=== PATIENT | female | born 1970 | race Caucasian/White ===

== ENCOUNTER 2021-06-10 10:33 | Emergency (ER) | payer BC ==
[~2021-06-10] VITALS: Ht 170.2 cm; Wt 95.0 kg
[2021-06-10 11:22] LABS: URINE BILIRUBIN - DIPSTICK NEGATIVE (NEGATIVE); URINE BLOOD DIPSTICK NEGATIVE (NEGATIVE); URINE COLOR YELLOW; URINE GLUCOSE - DIPSTICK NEGATIVE (NEGATIVE); URINE KETONE NEGATIVE (NEGATIVE); URINE LEUK ESTERASE NEGATIVE (NEGATIVE); URINE PROTEIN - DIPSTICK NEGATIVE (NEG-TRACE); URINE SPECIFIC GRAVITY <=1.005; URINE UROBILINOGEN - DIPSTICK 0.2 E.U./dL (0.2)
[2021-06-10 11:22] LABS: HEMATOCRIT 39.1 % (37.0-47.0); IMMATURE GRANULOCYTES 0.1 % (0.0-5.0); MEAN CELL VOLUME 93.1 fL CALC (80.0-100.0); MEAN CORPUSCULAR HGB CONC 33.2 g/dL CAL (32.0-36.0); NEUT# 5.75 thou/uL (2.00-7.15); RED BLOOD COUNT 4.2 mill/uL (4.20-5.60); RED CELL DISTRI WIDTH 12.8 % (11.5-15.5)
[2021-06-10 11:23] LABS: URINE NITRITE - DIPSTICK NEGATIVE (Negative)
[2021-06-10 11:31] LABS: ALBUMIN 4.4 g/dL (3.2-5.0); ALKALINE PHOSPHATASE 83 u/l (38-126); ANION GAP 13 (6-22 (CALC)); BILIRUBIN, TOTAL 0.8 mg/dL (0.0-1.4); BUN 14 mg/dL (7-17); BUN/CREATININE RATIO 22 (12-20 (CALC)); CARBON DIOXIDE 26 mmol/l (22-30); CHLORIDE 103 mmol/l (95-108); CREATININE 0.7 mg/dL (0.5-1.0); GFR > 60 ML/MIN (>=60 (CALC)); GFR FOR AFR.AMER. > 60 ML/MIN (>=60 (CALC)); LIPASE 135 u/l (23-300); POTASSIUM 4.3 mmol/l (3.5-5.1); SGOT/AST 24 u/l (14-36); SODIUM 138 mmol/l (137-146); TOTAL PROTEIN 7.3 g/dL (6.3-8.2)
[2021-06-10] MEDS ORDERED: CIPROFLOXACN500 MG PO (11:31)
[2021-06-10] MEDS ORDERED: AMOX/K CLAV875 M1 PO (11:31)
[2021-06-10] MEDS ORDERED: ZOFRAN4 M1 PO (11:31)
[2021-06-10 11:59] VITALS: BP 142/81
== END 2021-06-10 12:07 | disposition home or self-care (01) | DRG 392 ==
LOC: ED 10:33
PROVIDERS: Family Medicine
DX: K57.32 Diverticulitis of large intestine without perforation or abscess without bleeding (principal); E66.9 Obesity, unspecified; Z68.32 Body mass index [BMI] 32.0-32.9, adult

== ENCOUNTER 2022-04-27 08:53 | Emergency (ER) | payer BC ==
[~2022-04-27] VITALS: Ht 170.2 cm; Wt 95.0 kg
[2022-04-27] VITALS (10 sets, daily range): BP systolic 141–183; BP diastolic 65–90
[~2022-04-27 08:53] MED LIST: AMOX/K CLAV875 M1 PO; CIPROFLOXACN500 MG PO; ZOFRAN4 M1 PO
[2022-04-27 09:24] LABS: HEMATOCRIT 43.5 % (37.0-47.0); IMMATURE GRANULOCYTES 0.1 % (0.0-5.0); MEAN CELL VOLUME 90.4 fL CALC (80.0-100.0); MEAN CORPUSCULAR HGB 31.4 pG CALC (26.0-32.0); MEAN CORPUSCULAR HGB CONC 34.7 g/dL CAL (32.0-36.0); NEUT# 9.55 thou/uL (2.00-7.15); RED BLOOD COUNT 4.81 mill/uL (4.20-5.60); RED CELL DISTRI WIDTH 12.6 % (11.5-15.5)
[2022-04-27 09:26] LABS: HEMOGLOBIN 15.1 g/dl (12.0-16.0)
[2022-04-27 09:42] LABS: ALBUMIN 4.9 g/dL (3.2-5.0); ALKALINE PHOSPHATASE 92 u/l (38-126); ANION GAP 17 (6-22 (CALC)); BILIRUBIN, TOTAL 0.6 mg/dL (0.0-1.4); BUN 12 mg/dL (7-17); BUN/CREATININE RATIO 16 (12-20 (CALC)); CARBON DIOXIDE 22 mmol/l (22-30); CHLORIDE 102 mmol/l (95-108); CREATININE 0.7 mg/dL (0.5-1.0); GFR FOR AFR.AMER. > 60 ML/MIN (>=60 (CALC)); GFR OTHER RACES > 60 ML/MIN (>=60 (CALC)); LIPASE 124 u/l (23-300); POTASSIUM 3.9 mmol/l (3.5-5.1); SGOT/AST 40 u/l (14-36); SODIUM 137 mmol/l (137-146); TOTAL PROTEIN 8.2 g/dL (6.3-8.2)
[2022-04-27 10:22] LABS: URINE BILIRUBIN - DIPSTICK NEGATIVE (NEGATIVE); URINE BLOOD DIPSTICK NEGATIVE (NEGATIVE); URINE COLOR YELLOW; URINE GLUCOSE - DIPSTICK NEGATIVE (NEGATIVE); URINE KETONE 15 mg/dL (NEGATIVE); URINE LEUK ESTERASE NEGATIVE (NEGATIVE); URINE NITRITE - DIPSTICK NEGATIVE (Negative); URINE PH 7.5 (4.5-8.0); URINE PROTEIN - DIPSTICK NEGATIVE (NEG-TRACE); URINE SPECIFIC GRAVITY 1.015; URINE UROBILINOGEN - DIPSTICK 0.2 E.U./dL (0.2)
[2022-04-27] MEDS ORDERED: TRAMADOL HYDROC50 M1 PO ×2 (12:20→12:57)
[2022-04-27] MEDS ORDERED: ZOFRAN4 MG/TAB PO (12:20)
== END 2022-04-27 13:14 | disposition home or self-care (01) | DRG 446 ==
LOC: ED 08:53
PROVIDERS: Family Medicine
DX: K80.20 Calculus of gallbladder without cholecystitis without obstruction (principal); E66.9 Obesity, unspecified
CPT/HCPCS: Q9967

== ENCOUNTER 2022-07-25 11:32 | Emergency (ER) | payer BC ==
[2022-07-25] VITALS (8 sets, daily range): BP systolic 104–188; BP diastolic 57–88
[~2022-07-25] VITALS: Ht 170.2 cm; Wt 95.0 kg
[~2022-07-25 11:32] MED LIST changes: +TRAMADOL HYDROC50 M1 PO; +ZOFRAN4 MG/TAB PO
[2022-07-25 12:24] LABS: URINE BILIRUBIN - DIPSTICK NEGATIVE (NEGATIVE); URINE BLOOD DIPSTICK NEGATIVE (NEGATIVE); URINE COLOR YELLOW; URINE GLUCOSE - DIPSTICK NEGATIVE (NEGATIVE); URINE KETONE NEGATIVE (NEGATIVE); URINE LEUK ESTERASE NEGATIVE (NEGATIVE); URINE NITRITE - DIPSTICK NEGATIVE (Negative); URINE PH 5.5 (4.5-8.0); URINE PROTEIN - DIPSTICK NEGATIVE (NEG-TRACE); URINE SPECIFIC GRAVITY <=1.005; URINE UROBILINOGEN - DIPSTICK 0.2 E.U./dL (0.2)
[2022-07-25 12:25] LABS: BASO% 0.7 % (0-3); EOS% 4.9 % (0-8); MEAN CELL VOLUME 95.1 fL CALC (80.0-100.0); MEAN CORPUSCULAR HGB 32.5 pG CALC (26.0-32.0); MEAN CORPUSCULAR HGB CONC 34.1 g/dL CAL (32.0-36.0); MONO% 6.8 % (2-13); NEUT# 4.73 thou/uL (2.00-7.15); NEUT% 66.6 % (42-76); RED BLOOD COUNT 3.91 mill/uL (4.20-5.60); RED CELL DISTRI WIDTH 12.6 % (11.5-15.5)
[2022-07-25 12:32] LABS: HEMATOCRIT 37.2 % (37.0-47.0); HEMOGLOBIN 12.7 g/dl (12.0-16.0)
[2022-07-25 12:33] LABS: ALBUMIN 4.3 g/dL (3.2-5.0); ALKALINE PHOSPHATASE 56 u/l (38-126); ANION GAP 9 (6-22 (CALC)); BILIRUBIN, TOTAL 0.5 mg/dL (0.0-1.4); BUN 15 mg/dL (7-17); BUN/CREATININE RATIO 20 (12-20 (CALC)); CARBON DIOXIDE 29 mmol/l (22-30); CHLORIDE 104 mmol/l (95-108); CREATININE 0.7 mg/dL (0.5-1.0); GFR FOR AFR.AMER. > 60 ML/MIN (>=60 (CALC)); GFR OTHER RACES > 60 ML/MIN (>=60 (CALC)); LIPASE 149 u/l (23-300); SGOT/AST 29 u/l (14-36); SODIUM 138 mmol/l (137-146); TOTAL PROTEIN 7.3 g/dL (6.3-8.2)
[2022-07-25] MEDS ORDERED: ZOFRAN4 MG/TAB PO (14:04)
[2022-07-25] MEDS ORDERED: HYDROCO/APAP1 TA9 PO (14:04)
[2022-07-27] MEDS ORDERED: PERCOCET 5/321 COMBO PO (12:20)
== END 2022-07-25 14:45 | disposition home or self-care (01) | DRG 446 ==
LOC: ED 11:32
PROVIDERS: Family Medicine
DX: K80.20 Calculus of gallbladder without cholecystitis without obstruction (principal)

== ENCOUNTER 2022-08-13 07:22 | Day surgery (SDC) | payer BC ==
[~2022-08-13] VITALS: Ht 170.2 cm; Wt 90.7 kg
[~2022-08-13 07:22] MED LIST changes: +HYDROCO/APAP1 TA9 PO; +PARAGARD IU; +PERCOCET 5/321 COMBO PO
[2022-08-13] MEDS ORDERED: PERCOCET 5/325M1 TAB PO (08:47)
[2022-08-13 10:52] VITALS: BP 146/83
== END 2022-08-13 11:11 | disposition home or self-care (01) | DRG 419 ==
LOC: ORM 07:22
PROVIDERS: ATTEND Surgery
PROC: 0FT44ZZ Resection of Gallbladder, Percutaneous Endoscopic Approach (ICD-10-PCS; principal; 2022-08-13)
DX: K80.10 Calculus of gallbladder with chronic cholecystitis without obstruction (principal)
CPT/HCPCS: J0131

== ENCOUNTER 2024-02-01 14:49 | Emergency (ER) | payer BC ==
[~2024-02-01] VITALS: Ht 170.2 cm; Wt 100.0 kg
[~2024-02-01 14:49] MED LIST changes: +AMOXICILLIN500 M2 PO; +METRONIDAZOLE500 MG PO; +MOTRIN800 MG PO; +PERCOCET 5/325M1 TAB PO
[2024-02-01] MEDS ORDERED: EPINEPHrine HCL 1 MG/ML AMP IM STA (15:12)
[2024-02-01] MEDS ORDERED: SODIUM CHLORIDE 0.9% 1,000 ML IV STA (15:12)
[2024-02-01] MEDS ORDERED: DiphenhydrAMINE HCL 50 MG/ML SDV IV STA (15:12)
[2024-02-01] MEDS ORDERED: methylPREDNISolone SODIUM SUCC 125 MG/2 ML SDV IV STA (15:12)
[2024-02-01] MEDS ORDERED: FAMOTIDINE 10MG/ML 2ML SDV IV STA (15:12)
[2024-02-01 16:04] LABS: ALBUMIN 4.2 g/dL (3.2-5.0); BASO% 0.7 % (0-3); BILIRUBIN, TOTAL 0.8 mg/dL (0.02-1.3); CREATININE 0.8 mg/dL (0.5-1.0); EOS% 5.8 % (0-8); HEMATOCRIT 37.4 % (37.0-47.0); HEMOGLOBIN 12.8 g/dl (12.0-16.0); IMMATURE GRANULOCYTES 0.7 % (0.0-5.0); LYMPH% 23.9 % (15-41); MEAN CELL VOLUME 94.9 fL CALC (80.0-100.0); MEAN CORPUSCULAR HGB 32.5 pG CALC (26.0-32.0); MEAN CORPUSCULAR HGB CONC 34.2 g/dL CAL (32.0-36.0); MONO% 6.6 % (2-13); NEUT# 5.19 thou/uL (2.00-7.15); NEUT% 62.3 % (42-76); RED BLOOD COUNT 3.94 mill/uL (4.20-5.60); RED CELL DISTRI WIDTH 12.6 % (11.5-15.5)
[2024-02-01] MEDS ORDERED: EPIPEN 2-P0.3 MG/0.3 IM (17:31)
[2024-02-01] MEDS ORDERED: PREDNISONE20 MG PO (17:31)
[2024-02-01 17:53] VITALS: BP 123/60
== END 2024-02-01 18:02 | disposition left against medical advice (07) | DRG 918 ==
LOC: ED 14:49
PROVIDERS: Nurse Practitioner
DX: T63.461A Toxic effect of venom of wasps, accidental (unintentional), initial encounter (principal); R22.0 Localized swelling, mass and lump, head; Z72.0 Tobacco use; Z53.29 Procedure and treatment not carried out because of patient's decision for other reasons

== ENCOUNTER 2024-02-08 09:48 | Emergency (ER) | payer BC ==
[~2024-02-08] VITALS: Ht 170.2 cm; Wt 95.3 kg
[~2024-02-08 09:48] MED LIST changes: +EPIPEN 2-P0.3 MG/0.3 IM; +PREDNISONE20 MG PO
[2024-02-08 10:11] VITALS: BP 156/73
[2024-02-08 10:16] VITALS: BP 145/64
[2024-02-08 10:31] VITALS: BP 137/69
[2024-02-08 10:46] VITALS: BP 141/71
[2024-02-08 10:58] VITALS: BP 141/71
== END 2024-02-08 11:01 | disposition home or self-care (01) | DRG 392 ==
LOC: ED 09:48
DX: K57.32 Diverticulitis of large intestine without perforation or abscess without bleeding (principal); Z72.0 Tobacco use